=== PATIENT | female | born 1975 | race American Indian/Alaskan Native ===

== ENCOUNTER 2016-12-20 00:29 | Emergency (ER) | payer MEDICARE ==
[2016-12-20 00:53] VITALS: BP 133/96
[2016-12-20 02:04] LABS: Basophils % (Auto) 0.4 % (0.0-1.8); Eosinophils % (Auto) 0.2 % (0.0-4.3); Hematocrit 41.2 % (30.3-42.9); Hemoglobin 13.8 gm/dl (10.1-14.3); Mean Corpuscular HGB Conc 33 % (30-34); Mean Corpuscular Hemoglobin 32 pg (28-32); Mean Corpuscular Volume 97 fl (79-97); Platelet Count 233 K/mm3 (140-440); Red Blood Count 4.27 M/mm3 (3.65-5.03); Red Cell Distribution Width 13.5 % (13.2-15.2); White Blood Count 14.6 K/mm3 (4.5-11.0)
[2016-12-20 02:11] LABS: Alanine Aminotransferase 40 units/L (7-56); Albumin 4.6 g/dL (3.9-5); Albumin/Globulin Ratio 1.5 %; Alkaline Phosphatase 52 units/L (35-129); Anion Gap 22 mmol/L; Bilirubin,Total 2.1 mg/dL (0.1-1.2); Blood Urea Nitrogen 12 mg/dL (7-17); Calcium 8.8 mg/dL (8.4-10.2); Carbon Dioxide 23 mmol/L (22-30); Chloride 98.7 mmol/L (98-107); Glucose 118 mg/dL (65-100); Lipase 73 units/L (13-60); Potassium 3.2 mmol/L (3.6-5.0); Sodium 140 mmol/L (137-145); Total Protein 7.7 g/dL (6.3-8.2)
--- NOTE | 2016-12-21 00:27 | ED Elopement Review ---
ED Pt Elopement review - Results review Lab results: Laboratory Tests 12/20/16 12/20/16 01:43 01:43 WBC 14.6 H RBC 4.27 Hgb 13.8 Hct 41.2 MCV 97 MCH 32 MCHC 33 RDW 13.5 Plt Count 233 Lymph % (Auto) 6.3 L [place] % (Auto) 5.8 Eos % (Auto) 0.2 Baso % (Auto) 0.4 Lymph # 0.9 L [place] # 0.8 Eos # 0.0 Baso # 0.1 Seg Neutrophils % 87.3 H Seg Neutrophils # 12.7 H Sodium 140 Potassium 3.2 L Chloride 98.7 Carbon Dioxide 23 Anion Gap 22 BUN 12 Creatinine 0.8 Estimated GFR > 60 BUN/Creatinine Ratio 15.00 Glucose 118 H Calcium 8.8 Total Bilirubin 2.1 H AST 32 ALT 40 Alkaline Phosphatase 52 Total Protein 7.7 Albumin 4.6 Albumin/Globulin Ratio 1.5 Lipase 73 H - Call Back decision Pt Call Back Decision: No action required
== END 2016-12-20 05:52 | disposition left against medical advice (07) ==
LOC: ED 00:29
DX: R10.9 Unspecified abdominal pain (principal); N93.9 Abnormal uterine and vaginal bleeding, unspecified; Z53.21 Procedure and treatment not carried out due to patient leaving prior to being seen by health care provider
CPT/HCPCS: 36415; 80053; 83690; 85025

== ENCOUNTER 2019-05-16 08:16 | Outpatient (CLI) | payer MEDICARE ==
--- NOTE | 2019-05-16 09:26 | Cat Scan Report ---
CT ABDOMEN AND PELVIS WITHOUT CONTRAST HISTORY: Renal stones, chronic back pain, lithotripsy 2 weeks ago patient here for a follow-up. COMPARISON: None at this facility TECHNIQUE: Axial CT images were obtained through the abdomen and pelvis without IV contrast. Sagittal and coronal reformatted images. All CT scans at this location are performed using CT dose reduction for ALARA by means of automated exposure control. FINDINGS: CT ABDOMEN: Lung Bases: Clear. Liver: No significant abnormality. Biliary: Cholecystectomy changes. No biliary dilatation. Spleen: No significant abnormality. Unenlarged. Pancreas: No significant abnormality. Adrenals: No significant abnormality. Kidneys: The kidneys are normal size, contour and position. Bilateral renal calyceal stones are ident ified. There are approximately 5 or 6 stones in both kidneys. The largest stone measures 5.5 mm in th e inferior left kidney. The remaining renal stones measure 1-2 mm. No evidence for renal cystic disea se or mass. The ureters are normal course and caliber. The bladder is unremarkable. Lymphatics: No lymphadenopathy. Vasculature: No significant abnormality. Bowel/Peritoneum: No significant abnormality. No free air. No free fluid. Normal appendix. CT PELVIS: : No significant abnormality. Osseous Structures: No significant abnormality. Additional Findings: Small umbilical hernia containing fat. IMPRESSION: Bilateral renal calyceal stones as described. No ureteral stones or hydronephrosis. Small umbilical hernia containing fat. Cholecystectomy. Signer Name: Ehsan Headley Jr, MD Signed: 05/16/2019 9:22 AM Workstation Name: [id number]
== END 2019-05-16 08:17 | disposition home or self-care (01) ==
LOC: CT 08:16
DX: K42.9 Umbilical hernia without obstruction or gangrene (principal); K21.9 Gastro-esophageal reflux disease without esophagitis; E78.00 Pure hypercholesterolemia, unspecified; I10 Essential (primary) hypertension; J45.909 Unspecified asthma, uncomplicated; E03.9 Hypothyroidism, unspecified; Z90.49 Acquired absence of other specified parts of digestive tract
CPT/HCPCS: 74176